=== PATIENT | female | born 1940 ===

== ENCOUNTER 2019-07-01 12:15 | Inpatient (IN) | payer OTHER ==
[~2019-07-01] VITALS: Ht 162.6 cm; Wt 57.6 kg
[2019-07-01] MEDS ORDERED: ASPIR 8181 MG (15:17)
[2019-07-01] MEDS ORDERED: TOPROL XL50 M1 (15:17)
[2019-07-01] MEDS ORDERED: LOSARTAN-HCTZ1 EACH (15:17)
[2019-07-09] MEDS ORDERED: XARELTO10 MG PO (07:51)
[2019-07-09] MEDS ORDERED: BACTRIM DS TAB1 EACH PO (07:51)
[2019-07-09] MEDS ORDERED: OXYC1TAB9 PO (07:51)
[2019-07-09] MEDS ORDERED: INTEGRA PLUS C1 EACH PO (07:51)
== END 2019-07-09 13:25 | DRG 470 ==
LOC: O/R 12:15 → SURG 07-06 05:40 → SURH 07-06 10:45 → O/R 07-06 12:15 → SURH 07-06 16:34 → SURG 07-06 21:52
PROVIDERS: ADMIT Orthopaedic Surgery Sports Medicine
PROC: 0SRD0J9 Replacement of Left Knee Joint with Synthetic Substitute, Cemented, Open Approach (ICD-10-PCS; principal; 2019-07-06 10:45)
DX: M17.12 Unilateral primary osteoarthritis, left knee (principal); I10 Essential (primary) hypertension